=== PATIENT | male | born 1970 | race Caucasian/White ===

== ENCOUNTER 2021-02-16 08:04 | Emergency (ER) | payer OTHER ==
[~2021-02-16] VITALS: Ht 167.6 cm; Wt 90.7 kg
--- NOTE | 2021-02-16 08:41 | EKG ---
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: [facility] : 1970 Requested By: Ra Hines Order Number: [id number] MD: Kendall Brown Measurements Intervals [place] Rate: 91 P: 42 MA: 138 QRS: -15 QRSD: 86 T: 23 QT: 364 QTc: 448 Interpretive Statements Sinus rhythm Borderline left axis deviation Low voltage, precordial leads No previous ECG available for comparison Electronically Signed On 02-16-2021 8:41:08 CDT by Kendall Brown [email or web address] <ELECTRONICALLY SIGNED> By: Kendall Brown MD, [facility] 02/16/21840 6 6 Kendall Brown MD, FACC /EPI
[2021-02-16 08:55] LABS: ABSOLUTE EOSINOPHILS 0.3 thou/uL (0.0-0.7); ABSOLUTE LYMPHOCYTES 2.6 thou/uL (0.8-5.3); ABSOLUTE MONOCYTES 0.7 thou/uL (0.0-1.2); ABSOLUTE NEUTROPHILS 8.2 thou/uL (1.6-8.1); BASOPHILS 0.2 %; EOSINOPHILS 2.2 %; HEMATOCRIT 46.8 % (42.0-52.0); HEMOGLOBIN 15.7 gm/dL (14.0-18.0); LYMPHOCYTES 22.1 %; MCH 31.7 pg (26.0-34.0); MCHC 33.6 g/dL (28.0-37.0); MCV 94.4 fL (80.0-100.0); MONOCYTES 6.2 %; NUCLEATED RBCS 0 /100WBC; PLATELET COUNT* 261 thou/uL (150-400); POLYS 69.3 %; RBC 4.96 mil/uL (4.50-6.00); RDW-CV 13.9 % (10.5-14.5); WBC 11.8 thou/uL (4.0-11.0)
[2021-02-16 09:20] LABS: URINE BILIRUBIN NEGATIVE (Negative); URINE BLOOD TRACE (Negative); URINE CLARITY CLEAR; URINE COLOR YELLOW; URINE GLUCOSE-RANDOM NEGATIVE (Negative); URINE KETONES NEGATIVE (Negative); URINE LEUKOCYTES-REFLEX NEGATIVE (Negative); URINE NITRITE-REFLEX NEGATIVE (Negative); URINE PROTEIN TRACE (Negative); URINE SPECIFIC GRAVITY >= 1.030 (1.005-1.030); URINE UROBILINOGEN 0.2 E.U./dl (0.2-1.0)
[2021-02-16 09:22] LABS: CALCIUM 8.5 mg/dL (8.5-10.1); CREATININE 1.2 mg/dL (0.6-1.3); POTASSIUM 3.4 mmol/L (3.5-5.1)
[2021-02-16 09:27] LABS: ALBUMIN 3.7 g/dL (3.4-5.0); TOTAL BILIRUBIN 0.3 mg/dL (<0.1-1.0); TOTAL PROTEIN 7.2 g/dL (6.4-8.2)
[2021-02-16 09:37] LABS: AMP/METHAMP Negative (Negative); BARBITURATES Negative (Negative); BENZODIAZEPINES Negative (Negative); COCAINE Negative (Negative); METHADONE Negative (Negative); OPIATES Negative (Negative); PCP Negative (Negative); THC Negative (Negative)
[2021-02-16 12:49] VITALS: BP 131/70
--- NOTE | 2021-02-16 14:37 | EKG ---
[place] [address] ELECTROCARDIOGRAM REPORT Name: KYLE VALENTIN Room[facility]#: [id number] Admission: 02/16/21 Attend Phys: Discharge: 02/16/21 Date of : 74 Date of Service: 02/16/21 1026 Report #: [id number] THIS REPORT FOR: //name// [facility] ED Test Date: 2021-02-16 Test Time: 10:26:50 Pat Name: KYLE VALENTIN Department: Room: Gender: Sane Rn: [facility] : 1970 Requested By: Ra Hines Order Number: [id number] MD: Kendall Brown Measurements Intervals [place] Rate: 83 P: 49 AL: 140 QRS: -3 QRSD: 92 T: 11 QT: 376 QTc: 442 Interpretive Statements Sinus rhythm Compared to ECG 02/16/2021 08:37:50 No significant changes Electronically Signed On 02-16-2021 14:36:57 CDT by Kendall Brown [email or web address] <ELECTRONICALLY SIGNED> By: Kendall Brown MD, [facility] 02/16/21 1436 1026 1026 Kendall Brown MD, [facility] /EPI
--- NOTE | 2021-02-19 15:48 | CON ---
[address] [address] CONSULTATION Name: KYLE VALENTIN Room: [facility] SelenaKarinaAj.#: [id number] Admission: 02/16/21 Attend Phys: Discharge: 02/16/21 Date of : 74 Report #: [id number] THIS REPORT FOR: cc: FAM - No family physician/PCP FAM - No family physician/PCP Kendall Brown MD [facility] ~ DATE OF CONSULTATION: 02/16/2021 CARDIOLOGY CONSULTATION HISTORY OF PRESENT ILLNESS: The patient is a 50-year-old single white male who I was asked to see in the Emergency Room today after he had a syncopal spell. The history is obtained from the patient. There are no old records. There are no family members available. The patient denies previous history of heart disease. He does not exercise on a regular basis, but denies any recent chest pain, shortness of breath, or palpitations. The patient has been eating well recently with no fever, diarrhea, or bleeding. He was driving to work this morning when he stopped at a convenience store and purchased a power drink. He then went on to work. He was standing at a computer when he suddenly felt lightheaded while drinking the power drink. He then apparently fell to the ground. Apparently, there was brief loss of consciousness. He did hit his head. He bit his tongue. EMS was called. He awakened while on the gurney. There was no seizure activity. The patient was brought to [facility]. I was asked to see him for further evaluation and treatment. He denies any palpitations episode. PAST MEDICAL HISTORY: He has had a hernia repair. He has no history of hypertension, diabetes. MEDICATIONS: He is on no medication. ALLERGIES: He has no known drug allergies. FAMILY HISTORY: Negative for heart disease. SOCIAL HISTORY: He is single, lives with a friend at [place]. He does not smoke, rarely drinks alcohol. He does smoke marijuana occasionally. REVIEW OF SYSTEMS: No history of stroke or asthma. No history of snoring at night. No liver disease, kidney disease, cancer, psychiatric illness, or chronic skin condition. PHYSICAL EXAMINATION: GENERAL: Revealed a middle-aged male who appeared in no distress. VITAL SIGNS: He had a blood pressure of 140/80, pulse 70. [place] [address] CONSULTATION Name: KYLE VALENTIN Room: [facility] Carlos#: [id number] Admission: 02/16/21 Attend Phys: Discharge: 02/16/21 Date of : 74 Report #: [id number] HEENT: He was anicteric. Conjunctivae pink. Mucous membranes moist. NECK: Veins not distended. No carotid bruits. Neck is supple. CHEST: Clear to auscultation. CARDIAC: Regular rate and rhythm. No murmurs. ABDOMEN: Soft. EXTREMITIES: Had no pitting edema. SKIN: Cool and dry. NEUROLOGIC: Nonfocal. DIAGNOSTIC DATA: ECG showed a sinus rhythm with no significant ST or T-wave changes. There was no QT prolongation. Workup in the Emergency Room, he had a portable chest x-ray that showed normal heart size, clear lung cole. LABORATORY WORK: Sodium 139, creatinine 1.2. High-sensitivity troponin was only 19. Urine drug screen was negative. Hemoglobin 15.7. His urinalysis, trace protein. IMPRESSION AND RECOMMENDATIONS: Syncope. Reason unclear. I would be concerned that the patient had a seizure since he bit his tongue. However, I find no cardiac etiology. If he continues to have syncope, I would consider a compliance monitor. Recommend no further cardiac evaluation at this time. I would recommend he avoid dehydration. <ELECTRONICALLY SIGNED> By: Kendall Brown MD, FACC 02/19/21 1548 1126 [id number] Brown MD, FACC /nt
== END 2021-02-16 12:49 | disposition home or self-care (01) ==
LOC: M.ERS 08:04
PROVIDERS: Emergency Medicine Emergency Medical Services
DX: R55 Syncope and collapse (principal); R56.9 Unspecified convulsions; R53.1 Weakness; R00.2 Palpitations; I10 Essential (primary) hypertension; E11.9 Type 2 diabetes mellitus without complications; Z98.890 Other specified postprocedural states